=== PATIENT | female | born 1950 | race Caucasian/White ===

== ENCOUNTER 2023-05-25 06:48 | Day surgery (SDC) | payer OTHER ==
[~2023-05-25] VITALS: Ht 162.6 cm; Wt 69.4 kg
[2023-05-25] MEDS ORDERED: SIMETHICONE 40 MG/0.6 ML ML ONE (07:45)
[2023-05-25 08:09] VITALS: O2SAT 100
[2023-05-25] MEDS: MIDAZOLAM HCL 5 MG/5 ML VIAL ONE ×7 (08:58→09:36)
[2023-05-25] MEDS: fentaNYL CITRATE/PF 100 MCG/2 ML AMP ONE ×5 (08:58→09:32)
[2023-05-25 15:06] VITALS: BP_SYST 112; PULSE 67; RESP 20
== END 2023-05-25 12:13 | disposition home or self-care (01) ==
LOC: SDS 06:48 → SMU 06:49 → SDS 12:13
PROVIDERS: ATTEND Internal Medicine Gastroenterology
DX: Z12.11 Encounter for screening for malignant neoplasm of colon (principal); D12.3 Benign neoplasm of transverse colon; D12.5 Benign neoplasm of sigmoid colon; R13.10 Dysphagia, unspecified; K29.50 Unspecified chronic gastritis without bleeding; K31.7 Polyp of stomach and duodenum; K64.8 Other hemorrhoids; E11.9 Type 2 diabetes mellitus without complications; Z88.0 Allergy status to penicillin; Z88.1 Allergy status to other antibiotic agents; Z90.49 Acquired absence of other specified parts of digestive tract; Z95.1 Presence of aortocoronary bypass graft; Z79.84 Long term (current) use of oral hypoglycemic drugs; Z79.899 Other long term (current) drug therapy
CPT/HCPCS: 43251; 45380; 43239; 99152; 82962; 43248; 45385; 88305; 88312; 88313; 99153; G0378; J2250; J3010; C1769